=== PATIENT | male | born 1940 | race Caucasian/White ===

== ENCOUNTER 2016-07-09 19:09 | Emergency (ER) | payer MEDICARE, BC, OTHER ==
[2016-07-09 19:19] VITALS: BP 176/93; PULSE 66; RESP 18; TEMP 98
[2016-07-09] MEDS ORDERED: DIPH,PERTUS(ACELL)TETVAC-LF 0.5 ML VIAL IM ONE (19:29)
[2016-07-09] MEDS ORDERED: MORPHINE SULFATE 10 MG/ML SYRINGE IM STA (19:30)
--- NOTE | 2016-07-09 20:21 | ED ---
Wound/Laceration HPI - General Chief Complaint: Wound/Laceration Stated Complaint: Lac/Finger/Saw Time Seen by Provider: 07/09/16 19:24 Source: patient Mode of arrival: ambulatory Limitations: no limitations - History of Present Illness Initial Comments: Patient is a 75-year-old right-handed male presenting to the emergency department with complaints of laceration to his left middle finger. Patient states he was cutting a board with a table saw when his finger slipped. Injury happened approximately 1 hour prior to arrival. Patient is complaining of a sharp pain to his finger currently rated 8 out of 10. No exacerbating or relieving factors. Patient denies recent illness, chills, nausea, vomiting, shortness of breath, chest pain, or abdominal pain. Patient complains of some numbness to the tip of his middle finger. Patient denies tetanus immunization in the last 5 years. Patient denies antibiotic use in the last 30 days. Treatments Prior to Arrival: bandage - Related Data Previous Rx's Medication Instructions Recorded Cephalexin [Keflex] 500 mg PO Q6HR #28 cap 07/09/16 Allergies Allergy/AdvReac Type Severity Reaction Status Date / Time No Known Allergies Allergy Verified 07/09/16 19:18 Review of Systems ROS Statement: Those systems with pertinent positive or pertinent negative responses have been documented in the HPI. ROS Other: All systems not noted in ROS Statement are negative. Past Medical History Past Medical History: Cancer, Hypertension Additional Past Medical History / Comment(s): lymphoma History of Any Multi-Drug Resistant Organisms: None Reported Past Surgical History: Cholecystectomy, Hernia Repair, Orthopedic Surgery Additional Past Surgical History / Comment(s): bile duct stent knee Past Psychological History: No Psychological Hx Reported Smoking Status: Never smoker Past Alcohol Use History: Rare Past Drug Use History: None Reported General Exam - General Exam Comments Initial Comments: GENERAL: Pt awake and alert, well-appearing, well-nourished, and in no acute distress. HEAD: Atraumatic, normocephalic. EYES: Pupils equal, round, and reactive to light, sclera anicteric, conjunctiva are normal. ENT: Moist mucous membranes. LUNGS: Breath sounds clear to auscultation bilaterally. No wheezes, rales, or rhonchi. HEART: Heart S1, S2, no S3 or S4. Regular rate and rhythm. No murmurs, rubs or gallops. ABDOMEN: Soft, nontender, nondistended, normoactive bowel sounds. No guarding, no rebound. No masses or organomegaly appreciated. NEUROLOGICAL: Pt oriented x 3. No focal deficits noted. PSYCH: Normal mood, normal affect. SKIN: Warm, dry. Limitations: no limitations Left Forearm Wrist exam: Present: normal inspection, full ROM. Absent: tenderness, swelling Hand Wrist exam: Present: full ROM, tenderness, swelling, laceration (3 cm irregular laceration to palmar aspect of distal third digit.). Absent: ecchymosis, nail avulsion, subungual hematoma Neuro motor exam: Present: wrist extension intact, thumb opposition intact, thumb IP flexion intact, thumb adduction intact, fingers 2-5 abduction intact Neurosensory exam: Present: 2-point discrimination, radial nerve intact, ulnar nerve intact, median nerve intact Vascular: Present: normal capillary refill, radial pulse, brachial pulse, ulnar pulse. Absent: vascular compromise Course Vital Signs 07/09/16 19:15 Temperature 98.0 F Pulse Rate 66 Respiratory 18 Rate Blood Pressure 176/93 O2 Sat by Pulse 97 Oximetry Procedures - Laceration Laceration #1 Consent Obtained: verbal consent Time Out Performed: No Indication: laceration Site: hand (Left palmar aspect of the third digit, distal ) Description: irregular Depth: simple, single layer Anesthetic Used: lidocaine 1% Anesthesia Technique: local infiltration Pre-repair: wound explored, irrigated extensively, deep structures intact, wound margins revised Type of Sutures: nylon Size of Sutures: 5-0 Number of Sutures: 6 Technique: simple, interrupted Patient Tolerated Procedure: well, no complications Medical Decision Making - Medical Decision Making Laceration to left middle digit. Laceration repaired, patient tolerated procedure well. X-ray without evidence of fracture or dislocation, no foreign body visualized. Patient's tetanus immunization updated. Patient instructed to follow-up with orthopedic service if numbness persists in 7-10 days. Patient provided with prescription for antibiotics. Wound care instructions reviewed. Patient agrees to treatment plan. Discharge instructions and return parameters reviewed. - Radiology Data Radiology results: report reviewed X-ray left third digit: There appears to be soft tissue irregularity and injury to the pulp of the distal third finger. No underlying acute fracture, subluxation, or dislocation. No retained radiopaque foreign body. As read by radiologist, Dr. Schreiber Disposition Clinical Impression: Laceration of left middle finger Disposition: HOME SELF-CARE Condition: Good Instructions: Care For Your Stitches (ED), Finger Laceration (ED) Additional Instructions: Postop wound care: Keep wound dry and clean for 24 hours; if dressing accidentally becomes wet, change dressing immediately. Gently clean the edges of the wound daily with a cotton swab saturated with peroxide to remove crust. Return immediately if signs of infection occur such as redness or red streaks progressing up and extremity, increasing pain, swelling, or fevers. Finish oral antibiotics as prescribed. Please return for suture removal in 7-10 days or sooner if complications. Follow-up with orthopedic service if numbness or tingling persist. Follow-up with primary care physician as directed. Please return to the emergency department if symptoms do not improve or get worse. Prescriptions: Cephalexin [Keflex] 500 mg PO Q6HR #28 cap Referrals: Nonstaff,Physician [Primary Care Provider] - 1-2 days Yomi Keyes MD [STAFF PHYSICIAN] - 1-2 days Time of Disposition: 20:20
--- NOTE | 2016-07-09 20:24 | XR ---
EXAMINATION TYPE: XR finger LT DATE OF EXAM: 07/09/2016 8:17 PM COMPARISON: NONE HISTORY: 75-year-old male with laceration and cut to the third digit. Pain. TECHNIQUE: 3 views coned down left third finger. FINDINGS: There appears to be soft tissue irregularity and injury to the pulp of the distal third finger. No un derlying acute fracture, subluxation, or dislocation. No retained radiopaque foreign body. IMPRESSION: Soft tissue injury to the pulp of the distal middle finger. No underlying acute osseous abnormality s een.
== END 2016-07-09 20:32 | disposition home or self-care (01) ==
LOC: EC 19:09
DX: S61.213A Laceration without foreign body of left middle finger without damage to nail, initial encounter (principal); Z23 Encounter for immunization; W45.8XXA Other foreign body or object entering through skin, initial encounter; Y93.89 Activity, other specified
CPT/HCPCS: 73140; 90715; 99283; 12002; 96372; 90471; J2270